=== PATIENT | male | born 1985 | race Caucasian/White ===

== ENCOUNTER 2024-08-21 12:24 | Emergency (ER) | payer OTHER, SELFPAY ==
--- NOTE | ~2024-08-21 | XR_ITS ---
EXAMINATION: XR chest 2V DATE: 08/21/2024 12:49 INDICATION: Cough and fever. TECHNIQUE: Frontal and lateral views of the chest were obtained. COMPARISON: None. FINDINGS: There are airspace opacities in left lower lung zone. No pleural effusion or pneumothorax. The heart size is normal. IMPRESSION: 1. Airspace opacities in left lower lung zone, consistent with pneumonia. Reviewed, dictated and finalized at location A.
[2024-08-21 12:37] VITALS: BP 143/91; PULSE 90; RESP 15; TEMP 36.9; O2SAT 96
--- NOTE | 2024-08-21 12:53 | ED.URI ---
HPI - URI/Sore Throat General Chief Complaint: Upper Respiratory Infection Stated Complaint: cough Source: patient Mode of arrival: ambulatory Limitations: no limitations History of Present Illness HPI Narrative: 39-year-old male presented for complaint of cough for about 5 days. Endorses a fever at the onset. Cough is nonproductive, reports bilateral lower rib pain with coughing. Denies shortness of breath, wheezing nausea, vomiting, diarrhea or lethargy. Taking [id number] cough medication. Related Data Home Medications Medication Instructions Recorded Confirmed minoxidil 2 % topical solution 1 ml topical BID 08/21/24 08/21/24 Allergies Allergy/AdvReac Type Severity Reaction Status Date / Time No Known Allergies Allergy Verified 08/21/24 12:34 Review of Systems Review of Systems: CONSTITUTIONAL: Denies body aches, fever, chills, or sweats. EYES: Denies visual changes, redness, or discharge. ENT:reports rhinorrhea, Denies sore throat, or otalgia. CARDIOVASCULAR: Denies chest pain, palpitations, or edema. RESPIRATORY: Reports cough, denies sob, wheezing. GASTROINTESTINAL: Denies abdominal pain, nausea, vomiting, or diarrhea. SKIN: Denies rash MUSCULOSKELETAL: reports rib pain Denies back pain, joint pain, or myalgia. NEUROLOGIC: Denies headache All systems reviewed & are unremarkable except as noted in HPI and below PMFSH Past Medical History Medical History Elevated liver enzymes Gout, unspecified Hypogonadism in male Male pattern baldness Sinusitis, acute Surgical History Surgical History History of arthroscopic surgery of shoulder (~2017) repair of left labral tear and biceps tendon rupture Family History Family History Father Family history of glaucoma Other Diabetes mellitus Family history of alcoholism Family history of arthritis Family history of cardiovascular disease Family history of malignant neoplasm Family history of mental disorder Hypertension Social History Social History Social History: smoked for 6 years Smoking status: Current some day smoker (smokes cigars when playing golf) Tobacco type: cigars (occasionally) Alcohol intake: current Alcohol use details: socially Substance use: never Substance use type: does not use Lack of Transportation: No Lack of Food: Never True Current Housing: I Have Housing Concerned About Future Housing: No Difficulty Paying Gas/Electric Bills: No Difficulty Paying for Meds: No Currently Unemployed: No Education: Master's Degree or Higher Difficulty w/ Childcare or Family Care: No Living arrangements: with family Additional living arrangements comments: and son Occupation/Education: occupation Gender identity (if verbalized by the patient): Male Sexual Orientation (if Verbalized by the Patient): Straight or Heterosexual Agree to blood products: Yes Comments At time of signature, I have reviewed and agree with nursing past medical, surgical, social and family history unless otherwise noted. Please see nursing chart for further information. There is no relevant family history pertinent to the presenting complaint Exam Narrative: GENERAL: Well-appearing, in no acute distress. EYES: EOMI. No redness or drainage. Conjunctivae normal. ENT: Mucous membranes pink and moist. No rhinorrhea. TMs normal bilaterally. Throat normal. Uvula midline. NECK: Normal AROM. CHEST: No respiratory distress. Lungs clear to all nicolas; intermittent rub left base HEART: Regular rate and rhythm. No murmur appreciated. ABDOMEN: Soft, nontender, nondistended, normal active bowel sounds. SKIN: Warm, dry, no rash. Capillary refill normal. Normal skin turgor. NEURO: Alert and oriented x3. Gait steady. Course Course Emergency Course: Patient is aware of diagnosis, understands and agrees to treatment plan. Anticipatory guidance given. Patient agrees to follow-up as directed and is aware of reasons to seek care at the emergency department. Portions of this record may have been created with voice recognition software Level of Care: Express Care Visit Vital Signs Vital signs: Vital Signs Temperature 98.4 F 08/21/24 12:37 Pulse Rate 90 08/21/24 12:37 Respiratory Rate 15 08/21/24 12:37 Blood Pressure 143/91 H 08/21/24 12:37 Pulse Oximetry 96 08/21/24 12:37 Oxygen Delivery Room Air 08/21/24 12:37 Temperature 98.4 F 08/21/24 12:37 Pulse Rate 90 08/21/24 12:37 Respiratory Rate 15 08/21/24 12:37 Blood Pressure 143/91 H 08/21/24 12:37 Pulse Oximetry 96 08/21/24 12:37 Oxygen Delivery Room Air 08/21/24 12:37 MDM - URI/Sore Throat MDM Narrative Medical decision making narrative: Discussed physical exam findings and chest x-ray consistent with pneumonia. Reviewed prescriptions. Z-Pack sent as pt recently completed augmentin for ear infection. Advised supportive measures and signs/symptoms to go to the ER. Pt is appropriate for outpt treatment and f/u. Differential Diagnosis Differential diagnosis: Likely upper respiratory infection, sinusitis, viral infection, bronchitis, influenza, pharyngitis and other (pneumonia) Imaging Data Radiologist's impression: Patient: Tej Braun : 1985 MR#: [id number] Age: 39 Acct:[id number] Loc: [id number] ADM Date: 08/21/24Attending Dr: Ordering Physician: Jud Alvares APRN Date of Service: 08/21/24 Procedure(s): XR chest 2V Accession Number(s): [id number] cc: Jud Alvares APRN; Rahul Chung MD~ EXAMINATION: XR chest 2V DATE: 08/21/2024 12:49 INDICATION: Cough and fever. TECHNIQUE: Frontal and lateral views of the chest were obtained. COMPARISON: None. FINDINGS: There are airspace opacities in left lower lung zone. No pleural effusion or pneumothorax. The heart size is normal. IMPRESSION: 1. Airspace opacities in left lower lung zone, consistent with pneumonia. Discharge Plan Discharge Clinical Impression: Pneumonia Patient Disposition: Home, Self-Care Condition: Stable Instructions: Antibiotic Form, Pneumonia (ED) Additional Instructions: Pneumonia is a lung infection that can cause a fever, cough, and trouble breathing. How it spreads: When someone with bacterial pneumonia coughs, sneezes, or talks, they release respiratory droplets into the air that can be inhaled by others.?You can also get pneumonia by touching a contaminated surface or object and then touching your mouth or nose. You're generally contagious for around 48 hours after starting antibiotics and your fever goes away.? To prevent the spread of pneumonia, you can:? ? Get vaccinated? ? Wash your hands often with soap and water for 20 seconds? ? Cover your mouth with a tissue when you cough or sneeze? ? Avoid people who are already sick with pneumonia? ? Stay home when you have pneumonia Take antibiotics as directed until complete. eat small frequent meals. Get lots of rest and drink fluids. Tylenol/ibuprofen as needed for pain and fever Flonase nasal spray and antihistamine such as Zyrtec, Claritin or Shima if you have nasal congestion Call your Primary Care Doctor and make a follow-up appointment in 3 days. Go to the ER for worsening symptoms or concerns Prescriptions: New azithromycin [Zithromax Z-Priyank] 250 mg tablet See Rx Instructions .ROUTE .COMPLEX Qty: 6 0RF Rx Instructions: For 250 mg dose pack: take 500 mg today (day 1), then 250 mg for 4 days (days 2-5) benzonatate 200 mg capsule 200 mg PO TID PRN (Reason: cough) Qty: 20 0RF methylprednisolone [Medrol (Priyank)] 4 mg tablets,dose pack See Rx Instructions .ROUTE .COMPLEX Qty: 21 0RF Rx Instructions: orally per package directions No Action minoxidil 2 % Solution 1 ml TOPICAL BID testosterone cypionate 200 mg/mL oil 100 mg IM MONTHLY Qty: 2 1RF Rx Instructions: Injection 0.5 mls monthly allopurinol 300 mg tablet 300 mg PO DAILY Qty: 90 1RF finasteride 1 mg tablet 1 mg PO DAILY Qty: 90 1RF Follow-up/Referrals: Franklin Chung MD [Primary Care Provider] -
== END 2024-08-21 13:07 | disposition home or self-care (01) ==
PROVIDERS: Emergency Provider Nurse Practitioner Family; PCP Family Medicine
DX: J18.9 Pneumonia, unspecified organism (principal); Z72.0 Tobacco use; M10.9 Gout, unspecified
CPT/HCPCS: 71046; 99213; G0463